=== PATIENT | female | born 1980 | race Caucasian/White ===

== ENCOUNTER 2019-02-27 21:25 | Emergency (ER) | payer OTHER ==
[2019-02-27] MEDS ORDERED: SODIUM CHLORIDE 1,000 ML IV ONE (21:38)
[2019-02-27] MEDS ORDERED: KETOROLAC TROMETHAMINE 30 MG/1 ML VIAL IVPUSH ONE (21:38)
--- NOTE | 2019-02-27 21:42 | PDOC ---
Documentation entered by lEva Trejo SCRIBE, acting as scribe for Conor Ponce MD. Conor Ponce MD: This documentation has been prepared by the lorettaibeNeil Lincy, SCRIBE, under my direction and personally reviewed by me in its entirety. I confirm that the documentation accurately reflects all work , treatment, procedures, and medical decision making performed by me. History of Present Illness - General Chief Complaint: Pain Stated Complaint: ABD/FLANK PAIN Time Seen by Provider: 02/27/19 21:28 History Source: Patient Exam Limitations: No Limitations - History of Present Illness Initial Comments: 02/27/19 21:39 The patient is a 38-year-old female with no reported past medical history presents to the emergency department with abdominal pain. The patient presents with lower abdominal pain, with intermittent radiation to the left lower back. The patient reports the pain is stabbing in quality, associated with a single episode of nausea while driving to the ER. Denies dysuria, hematuria, frequency , or urgency to urinate. Denies fever, chills, chest pain, or SOB. PAST MEDICAL HISTORY: no significant history PAST SURGICAL HISTORY: no significant history FAMILY HISTORY: +kidney stones (Mother) SOCIAL HISTORY: Pt lives with family and is employed. MEDICATIONS: reviewed ALLERGIES: As per nursing notes ROS: General: No fevers or chills, no weakness, no weight loss HEENT: No change in vision. No sore throat,. No ear pain CardioVascular: No chest pain or shortness of breath Respiratory:No cough, or wheezing. Gastrointestinal: +lower abdominal pain that radiates to the lower left back. no nausea, vomiting, diarrhea or constipation, No rectal bleeding Genitourinary: No dysuria, hematuria, or frequency Musculoskeletal: No joint or muscle pain or swelling Neurologic: No headache, vertigo, dizziness or loss of consciousness Psychiatric: nor depression Skin: No rashes or easy bruising Endocrine: no increased thirst or abnormal weight change Allergic: no skin or latex allergy All other systems reviewed and normal Exam: General: Well-nourished well-developed individual, no acute distress HEENT: Throat: Normal, tonsils normal, no erythema or exudate Neck: Supple, no meningeal signs, no lymphadenopathy Eyes::Pupils equal reactive and round, extraocular motion intact Chest: Nontender to palpation Cardiac: S1-S2 normal, regular rate and rhythm, no murmurs rubs or gallops Respiratory: Lungs clear to auscultation bilateral Abdomen: +tenderness to palpation left CVA area and flank, mild tenderness to palpation to the suprapubic area, no rebound or guarding, soft, nondistended, normal bowel sounds. Extremities: Warm, dry, no cyanosis, clubbing, or edema Skin: No rashes Neuro: Alert and oriented x3, nonfocal exam, grossly intact, normal gait Psych: Normal mood and affect. 02/27/19 21:42. Assessment and plan: This is a 38-year-old female who comes in complaining of left flank pain. Patient is colicky in nature and moderately severe at its most intense. Patient has no pain on arrival and then developed some severe pain and then again no pain. Patient has been comfortable since then. Workup was initiated to rule out kidney stone and CAT scan did show a 6 x 10 mm mid left ureteral partially obstructing kidney stone. Prescriptions were sent to patient's pharmacy for Percocet and Zofran. Patient was given urology follow-up and discharged home. Past History - Past Medical History Allergies/Adverse Reactions: Allergies Allergy/AdvReac Type Severity Reaction Status Date / Time No Known Allergies Allergy Unverified 02/27/19 21:27 Home Medications: Ambulatory Orders Ondansetron [Ondansetron Odt] 8 mg PO TID #21 tab.rapdis 02/27/19 Oxycodone HCl/Acetaminophen [Percocet 5-325 mg Tablet] 1 tab PO Q4H #20 tablet MDD 8 02/27/19 ED Treatment Course - LABORATORY CBC & Chemistry Diagram: 02/27/19 21:44 02/27/19 21:44 *DC/Admit/Observation/Transfer Diagnosis at time of Disposition: Calculus of left kidney - Discharge Dispostion Disposition: HOME Condition at time of disposition: Good Decision to Admit order: No - Prescriptions Prescriptions: Ondansetron [Ondansetron Odt] 8 mg PO TID #21 tab.rapdis Oxycodone HCl/Acetaminophen [Percocet 5-325 mg Tablet] 1 tab PO Q4H #20 tablet MDD 8 - Referrals Referrals: Bob Ramos MD [Staff Physician] - - Patient Instructions Additional Instructions: For the pain take Percocet one tablet as often as every 4-6 hours as needed if the pain is intense you can increase it to 2 tablets every 4-6 hours. For nausea take Zofran as directed. In addition to the Percocet you can also take ibuprofen or Aleve for the pain. It is only so stay well-hydrated Return to the emergency department immediately with ANY new, persistent or worsening symptoms. Continue any medications as previously prescribed by your physician. You should follow up with your primary doctor as soon as possible regarding today's emergency department visit. . Please make sure your doctor reviews the results of your emergency evaluation. Thank you for coming to the Emergency Department today for your care. It was a pleasure to see you today. Please note that your evaluation is INCOMPLETE until you follow-up with your doctor. - Post Discharge Activity
[2019-02-27] MEDS ORDERED: KETOROLAC TROMETHAMINE 30 MG/1 ML VIAL ONE (21:47)
[2019-02-27] MEDS ORDERED: ONDANSETRON 4 MG/2 ML VIAL IVPB ONE (21:54)
[2019-02-27] MEDS ORDERED: morphine CARPU-JECT 2 MG/1 ML DISP.SYRIN IVPUSH ONE (21:54)
[2019-02-27 21:55] LABS: BASO % 2.9 % (0-2.0); EOS % 1.4 % (0-4.5); HEMATOCRIT 36.9 % (32.4-45.2); HEMOGLOBIN 12.2 GM/dl (10.7-15.3); LYMPH % 40.6 % (8-40); MCH 26.3 pg (25.7-33.7); MEAN CELL VOLUME 79.8 fl (80-96); MEAN PLT VOLUME 7.9 fl (7.5-11.1); MONO % 6.6 % (3.8-10.2); NEUT % 48.5 % (42.8-82.8); PLATELET COUNT 326 K/MM3 (134-434); RBC 4.63 M/mm3 (3.60-5.2); WHITE BLOOD COUNT 5.7 K/mm3 (4.0-10.8)
[2019-02-27 21:56] VITALS: BP 142/99; PULSE 95; TEMP 98.4; BMI 21.2
[2019-02-27] MEDS ORDERED: ONDANSETRON 4 MG/2 ML VIAL ONE (21:56)
[2019-02-27] MEDS ORDERED: morphine SULFATE 4 MG/ML VIAL ONE (21:56)
[2019-02-27 22:20] LABS: ALBUMIN 4.3 g/dl (3.4-5.0); BILIRUBIN,TOTAL 0.9 mg/dl (0.2-1); CALCIUM 9.2 mg/dl (8.5-10); CREATININE 0.8 mg/dl (0.55-1.3); POTASSIUM 3.4 mmol/L (3.5-5.1); TOT PROT 7.4 g/dl (6.4-8.2)
[2019-02-27 22:28] LABS: EPITHELIAL CELLS FEW /hpf
== END 2019-02-28 00:22 | disposition home or self-care (01) ==
LOC: FER 21:25
PROC: 3E0333Z Introduction of Anti-inflammatory into Peripheral Vein, Percutaneous Approach (ICD-10-PCS; principal; 2019-02-27)
PROC: 3E033NZ Introduction of Analgesics, Hypnotics, Sedatives into Peripheral Vein, Percutaneous Approach (ICD-10-PCS; 2019-02-27)
PROC: 3E033GC Introduction of Other Therapeutic Substance into Peripheral Vein, Percutaneous Approach (ICD-10-PCS; 2019-02-27)
PROC: 3E0337Z Introduction of Electrolytic and Water Balance Substance into Peripheral Vein, Percutaneous Approach (ICD-10-PCS; 2019-02-27)
DX: N20.0 Calculus of kidney (principal)
CPT/HCPCS: 36415; 74176-TC; 80053; 81003; 81015; 84703; 85025; 99284-25; J7030

== ENCOUNTER 2019-04-09 07:23 | Day surgery (SDC) | payer OTHER ==
[2019-04-08 18:19] VITALS: BMI 23.6
[2019-04-09] MEDS ORDERED: MIDAZOLAM HCL 2 MG/2 ML SINGLE DOSE VIAL ONE ×2 (08:31)
[2019-04-09] MEDS ORDERED: ceFAZolin SODIUM 1 GM VIAL IVPB ONE (08:35)
[2019-04-09] MEDS ORDERED: oxyCODONE HCL 5 MG TABLET PO PRN (08:40)
--- NOTE | 2019-04-09 08:40 | OP ---
Operative Note - Note: Operative Date: 04/09/19 Pre-Operative Diagnosis: LDU stone Operation: ESWL Findings: LDU stone Post-Operative Diagnosis: Same as Pre-op Surgeon: Maxi Cisse Anesthesiologist/PRESS PIPE INSPECTOR: Alena Toscano MD Anesthesia: General Estimated Blood Loss (mls): 0 Operative Report Dictated: Yes
[2019-04-09] MEDS ORDERED: DEXTROSE 5%-0.45% SALINE 1,000 ML IV SCH (08:45)
[2019-04-09 09:23] VITALS: TEMP 98.1
--- NOTE | 2019-04-09 10:34 | OP ---
DATE OF OPERATION: 04/09/2019 PREOPERATIVE DIAGNOSIS: Left distal ureteral stone. POSTOPERATIVE DIAGNOSIS: Left distal ureteral stone. PROCEDURE: Extracorporeal shock wave lithotripsy. SURGEON: Moy Mays M.D. INDICATIONS: Patient is a 38-year-old female with history of left ureteral stone, underwent lithotripsy approximately a month ago; however, has residual stone fragment in the left distal ureter now approximately 6 mm in size and persistent pain and discomfort, who elected to undergo repeat ESWL as opposed to ureteroscopy laser lithotripsy. After risks, benefits and alternatives were discussed in detail, the patient was then taken to the OR for ESWL. PROCEDURE: Patient was taken to the OR and placed supine on the fluoroscopy table. Under active fluoroscopy the stone was seen approximately 5 mm in size in the left distal ureter. Under active fluoroscopy the stone was targeted in the X, Y and Z axes and 3000 shocks were given under active fluoroscopy. At the completion of the procedure, there appeared to be good fragmentation of the stone. The patient was then awoken from anesthesia and transferred to the recovery room in stable condition. There were no complications. Estimated blood loss was zero. MOY MAYS M.D. [id number]
[2019-04-09 11:35] VITALS: BP 117/62; PULSE 76
== END 2019-04-09 11:00 | disposition home or self-care (01) ==
LOC: JASU-SURG 07:23
PROVIDERS: ATTEND Urology
PROC: 0TF7XZZ Fragmentation in Left Ureter, External Approach (ICD-10-PCS; principal; 2019-04-09 08:15)
DX: N20.1 Calculus of ureter (principal)
CPT/HCPCS: 84703